=== PATIENT | male | born 1975 | race Caucasian/White ===

== ENCOUNTER 2019-02-09 23:06 | Emergency (ER) | payer SELFPAY ==
[~2019-02-09] VITALS: Ht 154.9 cm; Wt 79.8 kg
[2019-02-09 23:09] VITALS: Ht 154.9 cm; Wt 79.8 kg
[2019-02-10] MEDS ORDERED: SODIUM CHLORIDE 0.9% 1L BAG IV* STA (00:04)
[2019-02-10] MEDS ORDERED: KETOROLAC 30 MG INJ IV STA (00:17)
[2019-02-10] MEDS ORDERED: PIPER-TAZO 3.375 GM IV (PMX) 100 ML IVPB ONE (00:30)
[2019-02-10] MEDS ORDERED: AMOX1TAB10 PO (02:35)
[2019-02-10] MEDS ORDERED: IBUP-1542 PO (02:37)
[2019-02-10] MEDS ORDERED: ACET-141 PO (02:37)
--- NOTE | 2019-02-10 02:46 | ERD ---
ER Documentation Chief Complaint Chief Complaint abscess on perianal area x 3 days HPI 43-year-old male presents for fever and pain around anal area x3 days. Patient has history of anal abscess. In the past patient has been given antibiotics with relief. He never had a incision and drainage because he was told that the abscess is too close to the rectum.. He states that his pain is about 8 out of 10. Is been taking Advil and Tylenol at home with some relief. Denies Raynaud's cough. No significant medical history noted. No other modifying factors noted, no other treatments tried at home. ROS All systems reviewed and are negative except as per history of present illness. Medications Home Meds Active Scripts Acetaminophen* (Acetaminophen*) 500 MG Extra Strength Tablet, 500 MG PO Q4H PRN for PAIN AND OR ELEVATED TEMP, #30 TAB Prov:DENIZ RICHARDS 02/10/19 Ibuprofen* (Motrin*) 600 Mg Tab, 600 MG PO Q6H PRN for PAIN AND OR ELEVATED TEMP, #30 TAB Prov:RICHARDSDENIZ ROSS 02/10/19 Amoxicillin/Potassium Clav (Amox-Clav 875-125 mg Tablet) 875-125 mg Tab, 1 TAB PO BID for 10 Days, #20 TAB Prov:DENIZ RICHARDS 02/10/19 Allergies Allergies: Coded Allergies: No Known Allergy (Unverified , 01/25/15) PMhx/Soc Medical and Surgical Hx: pt denies Medical Hx, pt denies Surgical Hx Hx Alcohol Use: No Hx Substance Use: No Hx Tobacco Use: No FmHx Family History: No coronary disease Physical Exam Vitals Vital Signs Date Temp Pulse Resp B/P (MAP) Pulse Ox O2 O2 Flow FiO2 Time Delivery Rate 02/10/19 98.7 81 17 116/55 96 Room Air 02:28 (75) 02/09/19 101.8 110 20 161/84 97 23:09 (109) Physical Exam Const: No acute distress Resp: Clear to auscultation bilaterally Cardio: Regular rate and rhythm, no murmurs, peripheral pulses intact Abd: Soft, non tender, non distended. Normal bowel sounds Skin: There is some dorothy-anal redness and tenderness to palpation over the right perianal area, there is no obvious fluctuance, there was tenderness to palpation Back: No midline or flank tenderness Ext: No cyanosis, or edema Neur: Awake and alert, bilateral lower extremity sensation intact Psych: Normal Mood and Affect Result Diagram: 02/10/19 0058 02/10/19 0058 Results 24 hrs Laboratory Tests Test 02/10/19 00:58 02/10/19 01:08 White Blood Count 16.0 10^3/ul Red Blood Count 5.29 10^6/ul Hemoglobin 14.9 g/dl Hematocrit 44.2 % Mean Corpuscular Volume 83.6 fl Mean Corpuscular Hemoglobin 28.2 pg Mean Corpuscular Hemoglobin Concent 33.7 g/dl Red Cell Distribution Width 12.6 % Platelet Count 286 10^3/UL Mean Platelet Volume 10.1 fl Immature Granulocytes % 0.400 % Neutrophils % 69.4 % Lymphocytes % 22.0 % Monocytes % 7.3 % Eosinophils % 0.5 % Basophils % 0.4 % Nucleated Red Blood Cells % 0.0 /100WBC Immature Granulocytes # 0.070 10^3/ul Neutrophils # 11.1 10^3/ul Lymphocytes # 3.5 10^3/ul Monocytes # 1.2 10^3/ul Eosinophils # 0.1 10^3/ul Basophils # 0.1 10^3/ul Nucleated Red Blood Cells # 0.0 10^3/ul Prothrombin Time 13.1 Sec Prothrombin Time Ratio 1.0 INR International Normalized Ratio 0.98 Activated Partial Thromboplast Time 31.8 Sec Urine Color YELLOW Urine Clarity CLEAR Urine pH 7.0 Urine Specific [place] 1.021 Urine Ketones NEGATIVE mg/dL Urine Nitrite NEGATIVE mg/dL Urine Bilirubin NEGATIVE mg/dL Urine Urobilinogen 2+ mg/dL Urine Leukocyte Esterase NEGATIVE Garrett/ul Urine Hemoglobin NEGATIVE mg/dL Urine Glucose NEGATIVE mg/dL Urine Total Protein NEGATIVE mg/dl Sodium Level 142 mmol/L Potassium Level 4.2 mmol/L Chloride Level 103 mmol/L Carbon Dioxide Level 27 mmol/L Anion Gap 12 Blood Urea Nitrogen 12 mg/dl Creatinine 0.89 mg/dl Est Glomerular Filtrat Rate mL/min > 60 mL/min Glucose Level 142 mg/dl Calcium Level 9.0 mg/dl Total Bilirubin 0.7 mg/dl Direct Bilirubin 0.00 mg/dl Indirect Bilirubin 0.7 mg/dl Aspartate Amino Transf (AST/SGOT) 24 IU/L Alanine Aminotransferase (ALT/SGPT) 67 IU/L Alkaline Phosphatase 115 IU/L Total Protein 8.3 g/dl Albumin 4.5 g/dl Globulin 3.80 g/dl Albumin/Globulin Ratio 1.18 POC Venous Lactate 1.2 mmol/L Current Medications Medications Dose Sig/Key Start Time Status Last (Trade) Ordered Route PRN Stop Time Admin Dose Reason Admin Piperacillin 100 ml @ ONCE ONCE 02/10/19 DC 02/10/19 Sod/ 200 mls/hr IVPB 00:30 00:51 Tazobactam 02/10/19 00:59 Sod Sodium 2,390 ml BOLUS OVER 2 02/10/19 DC 02/10/19 Chloride HOURS STAT 00:04 00:52 (NS) IV* 02/10/19 00:13 Ketorolac 30 mg ONCE STAT 02/10/19 DC 02/10/19 Tromethamine IV 00:17 00:51 (Toradol) 02/10/19 00:18 Procedures/MDM Medical Decision Making: Differential diagnosis includes but not limited to perianal abscess, cellulitis, contact dermatitis, allergic reaction Patient appeared well on physical exam. There was redness and tenderness to palpation over the right dorothy-rectal area. ED course: Patient presents to the ER with a fever of 101.8 and a pulse of 110. Given SIRS criteria with likely bacterial infection patient was worked up for sepsis Patient was given IV fluids, Zosyn, Toradol. Symptoms improved with treatment. CBC: no e/o of severe anemia, WBC was noted to be elevated at 16 CMP: no e/o severe acidosis, alkalosis, renal failure, diabetic ketoacidosis, liver disease UA was negative for infection CT abdomen pelvis without contrast showed possible 1.8 cm abscess in the right posterior peritoneum Repeat vital signs were normal. Patient did not have any nausea or vomiting. Therefore it was thought that despite the elevated WBC patient could be treated as an outpatient. Patient given prescription for pain medication as well as Augmentin. Advised to return to the ER 48 hours for a recheck. Patient agreed with plan. Patient advised to follow up with PCP in 1-2 days. Patient advised to return to ED for new or worsening symptoms. Patient stable on discharge from the ED. Disclaimer: Inadvertent spelling and grammatical errors are likely due to EHR/dictation software use and do not reflect on the overall quality of patient care. Also, please note that the electronic time recorded on this note does not necessarily reflect the actual time of the patient encounter. Departure Diagnosis: Primary Impression: Perianal abscess Condition: Fair Patient Instructions: Dorothy-Anal Abscess, Abx Only Additional Instructions: Llame al doctor MAANA y sahil glenys SUDHIR PARA DENTRO DE 1-2 BRODERICK.Dgale a la secretaria que nosotros le instruimos hacer esta sudhir.Avise o llame si malloy condicin se empeora antes de la sudhir. Regresa aqui si peor o no mejor. Return to ER in 48 hours for recheck DENIZ RICHARDS DO February 10, 2019 02:46
[2019-02-10 03:55] VITALS: BP 114/56; PULSE 81; RESP 17
== END 2019-02-10 03:56 | disposition home or self-care (01) ==
LOC: FTE 23:06
DX: K61.0 Anal abscess (principal); R10.9 Unspecified abdominal pain
CPT/HCPCS: 36415; 74176; 80053; 81003; 83605; 85025; 85610; 85730; 87040; 96374; 96375; 99285; J1885; J2543; J7030

== ENCOUNTER 2019-02-12 06:55 | Inpatient (IN) | payer MEDICAID ==
[~2019-02-12] VITALS: Ht 160 cm; Wt 79.4 kg
[~2019-02-12 06:55] MED LIST: ACET-141 PO; AMOX1TAB10 PO; IBUP-1542 PO
[2019-02-12 06:56] VITALS: Ht 160 cm; Wt 79.4 kg
[2019-02-12] MEDS ORDERED: KETOROLAC 30 MG INJ IV STA (07:18)
[2019-02-12] MEDS ORDERED: SOD CHLORIDE 0.9% 1,000 ML IV STA (07:18)
[2019-02-12] MEDS ORDERED: CEFTRIAXONE 1 GM/50 ML (PMX) 50 ML IVPB ONE (07:30)
[2019-02-12] MEDS ORDERED: SOD CHLORIDE 0.9% 100 ML ONE (07:48)
[2019-02-12] MEDS ORDERED: IOHEXOL 300MG/ML 150 ML BTL ONE (07:48)
--- NOTE | 2019-02-12 10:31 | CONS ---
Assessment/Plan Assessment/Plan Hospital Course (Demo Recall) 1. Perianal pain 2. Fevers 3. Leukocytosis 4. 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 -Colorectal surgery consultation -Drainage per colorectal or IR guided since nonpalpable 5. BMI 31 -Nutrition and exercise optimization Thank you very much for consulting me in this patient's care, Consultation Date/Type/Reason Admit Date/Time Date of Consultation: February 12, 2019 Type of Consult General surgical Reason for Consultation Perianal pain Perianal abscess, recurrent Leukocytosis BMI 31 Requesting Provider: MAEGAN ELIAS PA-C Date/Time of Note DATE: 02/12/19 TIME: 10:23 Hx of Present Illness Joseluis Luis is a 43-year-old male who presented on the with perianal pain fevers chills and was found to have an abscess but was discharged home on antibiotics from the emergency room. Here he presents with having this to continue about a week now with persistent fevers. He is no nausea vomiting. Having difficulty with bowel function. No dysuria. P no abdominal pain. No visual, neurologic changes. No trauma or sick contacts. No instrumentation of the area. No anal sex. WBC is elevated. CT scan shows enlargement of the abscess to 3 cm. Patient had a previous history of the same 2 years ago that drained spontaneously on antibiotics. Surgical consult is obtained further evaluation and treatment. 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 Leukocytosis Fevers Home Meds Active Scripts Acetaminophen* (Acetaminophen*) 500 MG Extra Strength Tablet, 500 MG PO Q4H PRN for PAIN AND OR ELEVATED TEMP, #30 TAB Prov:DENIZ RICHARDS 02/10/19 Ibuprofen* (Motrin*) 600 Mg Tab, 600 MG PO Q6H PRN for PAIN AND OR ELEVATED TEMP, #30 TAB Prov:DENIZ RICHARDS DO 02/10/19 Amoxicillin/Potassium Clav (Amox-Clav 875-125 mg Tablet) 875-125 mg Tab, 1 TAB PO BID for 10 Days, #20 TAB Prov:DENIZ RICHARDS DO 02/10/19 Allergies: Coded Allergies: No Known Allergy (Unverified , 01/25/15) Past Surgical History Denies Family History Significant Family History: no pertinent family hx Social History He is a poor man. here with his . Alcohol Use: none Smoking Status: Never smoker Drug Use: none Exam/Review of Systems Exam Vitals Vital Signs Date Temp Pulse Resp B/P (MAP) Pulse Ox O2 O2 Flow FiO2 Time Delivery Rate 02/12/19 99.9 93 19 129/84 99 06:56 (99) Constitutional: alert, oriented, distress (Mild), obese Psych: anxiety; No confusion Head: normocephalic, atraumatic Eyes: nl conjunctiva, EOMI, PERRL; No icteric ENMT: nl external ears & nose, nl lips & teeth, mucosa pink and moist Neck: supple, non-tender; No jvd Respiratory: normal air movement; No congested cough, No labored breathing Cardiovascular: regular rate and rhythm; No edema Gastrointestinal: soft, non-tender, other (Obese. Perianal mild tenderness. No palpable induration or fluctuance. Tender on digital rectal exam with fullness at the tip of my finger. Old scar from where it previously drained on its own); No rebound or guarding, No tender Genitourinary - Male: nl penis, nl scrotum Musculoskeletal: nl extremities to inspection, nl gait and stance; No joint tenderness Extremities: normal pulses; No calf tenderness, No edema Neurological: nl mental status, nl speech, nl strength Skin: nl turgor; No rash or lesions, No diaphoresis Lymph: nl lymph nodes Results Result Diagram: 02/12/19 0725 02/12/19 0725 Results 24hrs Laboratory Tests Test 02/12/19 07:25 White Blood Count 13.4 H Red Blood Count 5.09 Hemoglobin 14.3 Hematocrit 42.4 Mean Corpuscular Volume 83.3 Mean Corpuscular Hemoglobin 28.1 L Mean Corpuscular Hemoglobin Concent 33.7 Red Cell Distribution Width 12.2 Platelet Count 329 Mean Platelet Volume 9.8 Immature Granulocytes % 0.400 Neutrophils % 76.2 Lymphocytes % 17.6 Monocytes % 4.7 Eosinophils % 0.7 Basophils % 0.4 Nucleated Red Blood Cells % 0.0 Immature Granulocytes # 0.060 H Neutrophils # 10.2 H Lymphocytes # 2.4 Monocytes # 0.6 Eosinophils # 0.1 Basophils # 0.1 Nucleated Red Blood Cells # 0.0 Urine Color YELLOW Urine Clarity CLEAR Urine pH 6.0 Urine Specific [place] 1.012 Urine Ketones NEGATIVE Urine Nitrite NEGATIVE Urine Bilirubin NEGATIVE Urine Urobilinogen NEGATIVE Urine Leukocyte Esterase NEGATIVE Urine Hemoglobin NEGATIVE Urine Glucose 1+ H Urine Total Protein NEGATIVE Sodium Level 139 Potassium Level 3.9 Chloride Level 104 Carbon Dioxide Level 23 Anion Gap 12 Blood Urea Nitrogen 11 Creatinine 0.89 Est Glomerular Filtrat Rate mL/min > 60 Glucose Level 284 H Calcium Level 9.2 Total Bilirubin 0.5 Direct Bilirubin 0.00 Indirect Bilirubin 0.5 Aspartate Amino Transf (AST/SGOT) 30 Alanine Aminotransferase (ALT/SGPT) 53 Alkaline Phosphatase 111 Total Protein 7.9 Albumin 4.2 Globulin 3.70 H Albumin/Globulin Ratio 1.13 Lipase 82 BEKAH STILL MD February 12, 2019 10:31
[2019-02-12 11:00] VITALS: BP 149/87; PULSE 83; RESP 20
[2019-02-12] MEDS ORDERED: ZOLPIDEM 5 MG TAB PO PRN (15:00)
[2019-02-12] MEDS ORDERED: ACETAMINOPHEN 325 MG TAB PO PRN (15:00)
[2019-02-12] MEDS ORDERED: ONDANSETRON 4 MG INJ IV PRN (15:00)
[2019-02-12] MEDS ORDERED: NACL 0.9% 3 ML SYG IV SCH (15:00)
[2019-02-12] MEDS ORDERED: HYDROCODONE/APAP (5/325) TAB PO PRN (15:00)
[2019-02-12] MEDS ORDERED: DOCUSATE SODIUM 100 MG CAP PO PRN (15:00)
[2019-02-12] MEDS: morphine 2 MG INJ IV PRN (15:29)
[2019-02-12] MEDS: D5W-0.45 NACL + KCL 20 MEQ 1,000 ML IV SCH (15:32)
[2019-02-12] MEDS: MEROPENEM 1 GM/50ML(PMX) 50 ML IVPB SCH ×2 (15:32→21:59)
--- NOTE | 2019-02-12 15:54 | ERD ---
ER Documentation Chief Complaint Chief Complaint abscess @ perineal area HPI 43 yr old male complaining of pain to the anal and perianal abscess. Pain is worsening. Tactile fevers at home. Taking abx with no alleviations. No medical problems. NKDA. Surgeries denies. Social history denies. No abdominal pain. ROS All systems reviewed and are negative except as per history of present illness. Medications Home Meds Active Scripts Acetaminophen* (Acetaminophen*) 500 MG Extra Strength Tablet, 500 MG PO Q4H PRN for PAIN AND OR ELEVATED TEMP, #30 TAB Prov:DENIZ RICHARDS DO 02/10/19 Ibuprofen* (Motrin*) 600 Mg Tab, 600 MG PO Q6H PRN for PAIN AND OR ELEVATED TEMP, #30 TAB Prov:DENIZ RICHARDS DO 02/10/19 Amoxicillin/Potassium Clav (Amox-Clav 875-125 mg Tablet) 875-125 mg Tab, 1 TAB PO BID for 10 Days, #20 TAB Prov:DENIZ RICHARDS DO 02/10/19 Allergies Allergies: Coded Allergies: No Known Allergy (Unverified , 01/25/15) PMhx/Soc Medical and Surgical Hx: pt denies Medical Hx, pt denies Surgical Hx History of Surgery: No Hx Neurological Disorder: No Hx Respiratory Disorders: No Hx Cardiac Disorders: No Hx Psychiatric Problems: No Hx Miscellaneous Medical Probl: No Hx Alcohol Use: No Hx Substance Use: No Hx Tobacco Use: No Smoking Status: Never smoker FmHx Family History: No diabetes, No coronary disease, No other Physical Exam Vitals Vital Signs Date Temp Pulse Resp B/P (MAP) Pulse Ox O2 O2 Flow FiO2 Time Delivery Rate 02/12/19 99.9 93 19 129/84 99 06:56 (99) Physical Exam GENERAL: The patient is well-appearing, well-nourished, in no acute distress HEENT: Atraumatic. Conjunctivae are pink. Pupils equal, round, and reactive to light. There is no scleral icterus. Tympanic membranes clear bilaterally. Oropharynx clear. NECK: C-spine is soft and supple. There is no meningismus. There is no cervical lymphadenopathy. CHEST: Clear to auscultation bilaterally. There are no rales, wheezes or rhonchi. HEART: Regular rate and rhythm. No murmurs, clicks, rubs or gallops. ABDOMEN:Soft, nontender and nondistended. Good bowel sounds. No rebound or guarding. No gross peritonitis. No gross organomegaly or masses. BACK: No midline or flank tenderness. SKIN: No obvious edema or fluctuance. Pain with digital rectal exam. Result Diagram: 02/12/1925 02/12/19 0725 Results 24 hrs Laboratory Tests Test 02/12/19 07:25 White Blood Count 13.4 10^3/ul Red Blood Count 5.09 10^6/ul Hemoglobin 14.3 g/dl Hematocrit 42.4 % Mean Corpuscular Volume 83.3 fl Mean Corpuscular Hemoglobin 28.1 pg Mean Corpuscular Hemoglobin Concent 33.7 g/dl Red Cell Distribution Width 12.2 % Platelet Count 329 10^3/UL Mean Platelet Volume 9.8 fl Immature Granulocytes % 0.400 % Neutrophils % 76.2 % Lymphocytes % 17.6 % Monocytes % 4.7 % Eosinophils % 0.7 % Basophils % 0.4 % Nucleated Red Blood Cells % 0.0 /100WBC Immature Granulocytes # 0.060 10^3/ul Neutrophils # 10.2 10^3/ul Lymphocytes # 2.4 10^3/ul Monocytes # 0.6 10^3/ul Eosinophils # 0.1 10^3/ul Basophils # 0.1 10^3/ul Nucleated Red Blood Cells # 0.0 10^3/ul Urine Color YELLOW Urine Clarity CLEAR Urine pH 6.0 Urine Specific [place] 1.012 Urine Ketones NEGATIVE mg/dL Urine Nitrite NEGATIVE mg/dL Urine Bilirubin NEGATIVE mg/dL Urine Urobilinogen NEGATIVE mg/dL Urine Leukocyte Esterase NEGATIVE Garrett/ul Urine Hemoglobin NEGATIVE mg/dL Urine Glucose 1+ mg/dL Urine Total Protein NEGATIVE mg/dl Sodium Level 139 mmol/L Potassium Level 3.9 mmol/L Chloride Level 104 mmol/L Carbon Dioxide Level 23 mmol/L Anion Gap 12 Blood Urea Nitrogen 11 mg/dl Creatinine 0.89 mg/dl Est Glomerular Filtrat Rate mL/min > 60 mL/min Glucose Level 284 mg/dl Calcium Level 9.2 mg/dl Total Bilirubin 0.5 mg/dl Direct Bilirubin 0.00 mg/dl Indirect Bilirubin 0.5 mg/dl Aspartate Amino Transf (AST/SGOT) 30 IU/L Alanine Aminotransferase (ALT/SGPT) 53 IU/L Alkaline Phosphatase 111 IU/L Total Protein 7.9 g/dl Albumin 4.2 g/dl Globulin 3.70 g/dl Albumin/Globulin Ratio 1.13 Lipase 82 U/L Current Medications Medications Dose Sig/Key Start Time Status Last (Trade) Ordered Route PRN Stop Time Admin Dose Reason Admin Sodium 1,000 ml @ Q1H STAT 02/12/19 DC 02/12/19 Chloride 1,000 mls/hr IV 07:18 07:35 02/12/19 08:17 Ketorolac 30 mg ONCE STAT 02/12/19 DC 02/12/19 Tromethamine IV 07:18 07:35 (Toradol) 02/12/19 07:20 Ceftriaxone 50 ml @ ONCE ONCE 02/12/19 DC 02/12/19 Sodium 100 mls/hr IVPB 07:30 07:35 02/12/19 07:59 IV Flush 10 ml STK-MED 02/12/19 DC (NS 10 ml) ONCE .ROUTE 07:48 02/12/19 07:49 Sodium 100 ml @ ud STK-MED 02/12/19 DC Chloride ONCE .ROUTE 07:48 02/12/19 07:49 Iohexol 150 ml STK-MED 02/12/19 DC (Omnipaque ONCE .ROUTE 07:48 300mg/ ml) 02/12/19 07:49 Procedures/MDM DIAGNOSTIC IMAGING REPORT Patient: DILLAN DANIEL : 1975 Age: 43 Sex: M MR #: [id number] DOS: 02/12/19717 Ordering MD: ROSHNI HERRON PA-C Location: [facility] Room/Bed: PROCEDURE: CT Abdomen and Pelvis with IV contrast. CLINICAL INDICATION: Perineal abscess, pain TECHNIQUE: CT of the abdomen and pelvis with 100 cc Omnipaque-300 IV contrast. Coronal and sagittal reformatted images. DICOM images are available. One or more of the following dose reduction techniques were used: automated exposure control, adjustment of the mA and/or kV according to patient size, use of iterative reconstruction technique. CTDI 16.7 mGy, DLP 1057 mGy-cm. COMPARISON: CT 02/10/2019 FINDINGS: Lower thorax: Normal. Liver: Hepatic steatosis. No enhancing mass. Patent portal and hepatic veins. Biliary: Normal gallbladder. No biliary dilatation. Pancreas: Normal. Spleen: Normal. Adrenal glands: Normal. Genitourinary: No hydronephrosis or urinary calculi. Unremarkable urinary bladder. Vascular: No abdominal aortic aneurysm or dissection. Lymph nodes: No lymphadenopathy. Gastrointestinal: No bowel obstruction. Normal appendix. No diverticulosis, diverticulitis or colitis. Peritoneum: No free air, free fluid or intraperitoneal abscess. Reproductive organs: Unremarkable. Musculoskeletal: Rim enhancing low density collection is identified in the anterior pararenal region, measuring approximately 3.0 x 2.5 x 3.4 cm (3-181), compatible with abscess. Degenerative enthesopathy of the spine. IMPRESSION: 1. Abscess is identified in the anterior perianal/perineal region, measuring approximately 3.4 cm in maximal dimension. 2. There is no bowel obstruction, perforation, or intraperitoneal abscess. 3. Hepatic steatosis. DIAGNOSTIC IMAGING REPORT Patient: DILLAN DANIEL : 1975 Age: 43 Sex: M MR #: [id number] DOS: 02/12/19 0718 Ordering MD: ROSHNI HERRON PA-C Location: [facility] Room/Bed: PROCEDURE: US Scrotum. CLINICAL INDICATION: Right testicular pain TECHNIQUE: Multiple sonographic images of the scrotal region were obtained utilizing a linear array transducer with grayscale and color-flow and a Doppler imaging. COMPARISON: No prior studies are available for comparison. FINDINGS: The testicles are normal in size the right measuring 3.94 x 2.75 x 2.62 cm and the left measuring 4.13 x 2.06 x 3.06 cm. Testicular parenchymal echogenicity normal bilaterally without focal lesions. Flow to both testicles without ultrasonic evidence of testicular torsion. The epididymi are normal in size the right measuring 0.66 x 1.18 x 0.46 cm and the left measuring 0.59 x 0.98 x 0.99 cm. No focal epididymal lesions. No hydroceles or varicoceles demonstrated. IMPRESSION: 1. Unremarkable testicles and epididymi without focal lesions. 2. No evidence of testicular torsion. 3. No hydroceles or varicoceles demonstrated. ER Course: 1 L normal saline given in ED. Rocephin given in ED. Dr. Sandoval was consulted for surgical intervention given patient has an abscess that appears to be growing in size. Patient's pain is increased. Patient is afebrile. Patient will be admitted to the hospitalist and colorectal surgery consultation will be requested. Patient will be receiving IV antibiotics. MDM: 43-year-old male presenting with perianal abscess. I have low suspicion for sepsis. Patient's vitals are stable. Is admitted to the hospital and is stable at the time of admission. All questions answered at admission DANIELLE HERRON PA-C February 12, 2019 15:54
--- NOTE | 2019-02-12 16:32 | HP ---
Date/Time of Note Date/Time of Note DATE: 02/12/19 TIME: 16:21 Assessment/Plan VTE Prophylaxis SCD applied (from Nsg): Yes Pharmacological prophylaxis: NA/contraindicated Pharm contraindication: low risk/ambulating Lines/Catheters IV Catheter Type (from Nrsg): Saline Lock Assessment/Plan Hospital Course 1. Sepsis secondary to perianal/perineal abscess IV antibiotics meropenem ID consultation Surgical consultation appreciated, recommendation is for IR drainage or colorectal surgery, IR stating that they are unable to drain at this location Obtain consult with colorectal surgery Check HIV Prophylaxis: SCDs Result Diagram: 02/12/1925 02/12/19724 Results 24hrs Laboratory Tests Test 02/12/19 07:25 White Blood Count 13.4 H Red Blood Count 5.09 Hemoglobin 14.3 Hematocrit 42.4 Mean Corpuscular Volume 83.3 Mean Corpuscular Hemoglobin 28.1 L Mean Corpuscular Hemoglobin Concent 33.7 Red Cell Distribution Width 12.2 Platelet Count 329 Mean Platelet Volume 9.8 Immature Granulocytes % 0.400 Neutrophils % 76.2 Lymphocytes % 17.6 Monocytes % 4.7 Eosinophils % 0.7 Basophils % 0.4 Nucleated Red Blood Cells % 0.0 Immature Granulocytes # 0.060 H Neutrophils # 10.2 H Lymphocytes # 2.4 Monocytes # 0.6 Eosinophils # 0.1 Basophils # 0.1 Nucleated Red Blood Cells # 0.0 Urine Color YELLOW Urine Clarity CLEAR Urine pH 6.0 Urine Specific [place] 1.012 Urine Ketones NEGATIVE Urine Nitrite NEGATIVE Urine Bilirubin NEGATIVE Urine Urobilinogen NEGATIVE Urine Leukocyte Esterase NEGATIVE Urine Hemoglobin NEGATIVE Urine Glucose 1+ H Urine Total Protein NEGATIVE Sodium Level 139 Potassium Level 3.9 Chloride Level 104 Carbon Dioxide Level 23 Anion Gap 12 Blood Urea Nitrogen 11 Creatinine 0.89 Est Glomerular Filtrat Rate mL/min > 60 Glucose Level 284 H Calcium Level 9.2 Total Bilirubin 0.5 Direct Bilirubin 0.00 Indirect Bilirubin 0.5 Aspartate Amino Transf (AST/SGOT) 30 Alanine Aminotransferase (ALT/SGPT) 53 Alkaline Phosphatase 111 Total Protein 7.9 Albumin 4.2 Globulin 3.70 H Albumin/Globulin Ratio 1.13 Lipase 82 HPI/ROS Admit Date/Time Admit Date/Time February 12, 2019 Hx of Present Illness Patient is a 43-year-old male with history of perianal abscess that improved with antibiotics, patient presents with 3 days of worsening perirectal pain with fevers and chills and generalized malaise. In the ER CT abdomen showed an abscess in the anterior perianal/perineal region measuring approximate 3.4 cm. ROS Constitutional: no complaints, improved Eyes: no complaints ENT: no complaints Respiratory: no complaints Cardiovascular: no complaints Gastrointestinal: no complaints Genitourinary: other (Rectal pain) Musculoskeletal: no complaints Skin: no complaints Neurologic: no complaints Endocrine: no complaints Lymphatic: no complaints Psychological: no complaints, nl mood/affect Immunologic: no complaints PMH/Family/Social Past Medical History History of perirectal abscess Medications Current Medications Potassium Chloride/Dextrose/ Sod Cl 1,000 ml @ 100 mls/hr Q10H IV Last administered on 02/12/19at 15:32; Admin Dose 100 MLS/HR; Start 02/12/19 at 14:36 IV Flush (NS 3 ml) 3 ml PER PROTOCOL IV ; Start 02/12/19 at 15:00 Ondansetron HCl (Zofran Inj) 4 mg Q6H PRN IV NAUSEA/VOMITING; Start 02/12/19 at 15:00 Acetaminophen (Tylenol Tab) 650 mg Q6H PRN PO .PAIN 1-3 OR TEMP; Start 02/12/19 at 15:00 Acetaminophen/ Hydrocodone Bitart ([place] (5/325)) 1 tab Q6H PRN PO .MOD PAIN 4- 6; Start 02/12/19 at 15:00 Morphine Sulfate (morphine) 2 mg Q4H PRN IV .SEVERE PAIN 7-10 Last administered on 02/12/19at 15:29; Admin Dose 2 MG; Start 02/12/19 at 15:00 Docusate Sodium (Colace) 100 mg Q12H PRN PO .CONSTIPATION; Start 02/12/19 at 15:00 Zolpidem Tartrate (Ambien) 5 mg QHS PRN PO .INSOMNIA; Start 02/12/19 at 15:00 Meropenem/Sodium Chloride 50 ml @ 100 mls/hr Q8 IVPB Last administered on 02/12/19at 15:32; Admin Dose 100 MLS/HR; Start 02/12/19 at 15:00 Coded Allergies: No Known Allergy (Unverified , 01/25/15) Past Surgical History Past Surgical Hx: no surgical history Family History Significant Family History: no pertinent family hx Social History Alcohol Use: none Smoking Status: Never smoker Drug Use: none Exam/Review of Systems Vital Signs Vitals Vital Signs Date Temp Pulse Resp B/P (MAP) Pulse Ox O2 O2 Flow FiO2 Time Delivery Rate 02/12/19 100.4 83 20 149/87 98 11:00 (107) 02/12/19 Room Air 10:42 Exam Constitutional: alert, oriented Respiratory: clear to auscultation Cardiovascular: regular rate and rhythm Gastrointestinal: soft; No distended Musculoskeletal: nl extremities to inspection ELIANE SILVA February 12, 2019 16:32
[2019-02-12] MEDS: PIPER-TAZO 3.375 GM IV (PMX) 100 ML IVPB SCH ×2 (17:26→23:46)
[2019-02-12 20:00] VITALS: BP 129/77; PULSE 80; RESP 18
[2019-02-13 02:35] VITALS: BP 119/58; PULSE 83; RESP 18
[2019-02-13] MEDS: D5W-0.45 NACL + KCL 20 MEQ 1,000 ML IV SCH ×3 (02:59→15:10)
[2019-02-13] MEDS: PIPER-TAZO 3.375 GM IV (PMX) 100 ML IVPB SCH ×3 (05:33→17:43)
[2019-02-13 08:21] VITALS: BP 124/66; PULSE 78; RESP 18
--- NOTE | 2019-02-13 14:11 | PN ---
Date/Time of Note Date/Time of Note DATE: 02/13/19 TIME: 14:09 Assessment/Plan VTE Prophylaxis Risk score (from Ns)>0 risk: 1 SCD applied (from Ns): Yes Pharmacological prophylaxis: NA/contraindicated Pharm contraindication: low risk/ambulating Lines/Catheters [facility] (from [facility] Peripheral IV Urinary Cath still in place: No Assessment/Plan Hospital Course 1. Sepsis secondary to perianal/perineal abscess IV antibiotics meropenem ID consultation appreciated Surgical consultation appreciated, recommendation is for IR drainage or colorectal surgery, IR stating that they are unable to drain at this location Obtain consult with colorectal surgery Check HIV Prophylaxis: SCDs DC planning: Unable to have colorectal surgery evaluate patient due to lack of insurance, continue IV antibiotics, egg caser to assist with [facility] Result Diagram: 02/13/1943102/13/19 0432 Results 24hrs Laboratory Tests Test 02/13/19 04:30 02/13/19 04:32 Hemoglobin A1c 6.9 H White Blood Count 13.2 H Red Blood Count 5.06 Hemoglobin 14.3 Hematocrit 42.2 Mean Corpuscular Volume 83.4 Mean Corpuscular Hemoglobin 28.3 L Mean Corpuscular Hemoglobin Concent 33.9 Red Cell Distribution Width 12.6 Platelet Count 311 Mean Platelet Volume 9.7 Immature Granulocytes % 0.500 H Neutrophils % 68.2 Lymphocytes % 21.7 Monocytes % 8.5 Eosinophils % 0.9 Basophils % 0.2 Nucleated Red Blood Cells % 0.0 Immature Granulocytes # 0.060 H Neutrophils # 9.0 H Lymphocytes # 2.9 Monocytes # 1.1 H Eosinophils # 0.1 Basophils # 0.0 Nucleated Red Blood Cells # 0.0 Sodium Level 139 Potassium Level 4.1 Chloride Level 104 Carbon Dioxide Level 29 Anion Gap 6 Blood Urea Nitrogen 8 Creatinine 1.01 Est Glomerular Filtrat Rate mL/min > 60 Glucose Level 144 # Calcium Level 9.3 Phosphorus Level 3.9 Magnesium Level 2.2 Subjective 24 Hr Interval Summary Gastrointestinal: other (Rectal pain) Exam/Review of Systems Exam Vitals Vital Signs Date Temp Pulse Resp B/P (MAP) Pulse Ox O2 O2 Flow FiO2 Time Delivery Rate 02/13/19 99.8 78 18 124/66 97 08:21 (85) 02/12/19 Room Air 20:00 Intake and Output 502/12/19 02/13/19 1515:00 23:00 07:00 IntakeIntake Total 1050 ml 100 ml 1400 ml BalanceBalance 1050 ml 100 ml 1400 ml Constitutional: alert, oriented Respiratory: clear to auscultation Cardiovascular: regular rate and rhythm Gastrointestinal: soft; No distended Musculoskeletal: nl extremities to inspection Results Results 24hrs Laboratory Tests Test 02/13/19 04:30 02/13/19 04:32 Hemoglobin A1c 6.9 H White Blood Count 13.2 H Red Blood Count 5.06 Hemoglobin 14.3 Hematocrit 42.2 Mean Corpuscular Volume 83.4 Mean Corpuscular Hemoglobin 28.3 L Mean Corpuscular Hemoglobin Concent 33.9 Red Cell Distribution Width 12.6 Platelet Count 311 Mean Platelet Volume 9.7 Immature Granulocytes % 0.500 H Neutrophils % 68.2 Lymphocytes % 21.7 Monocytes % 8.5 Eosinophils % 0.9 Basophils % 0.2 Nucleated Red Blood Cells % 0.0 Immature Granulocytes # 0.060 H Neutrophils # 9.0 H Lymphocytes # 2.9 Monocytes # 1.1 H Eosinophils # 0.1 Basophils # 0.0 Nucleated Red Blood Cells # 0.0 Sodium Level 139 Potassium Level 4.1 Chloride Level 104 Carbon Dioxide Level 29 Anion Gap 6 Blood Urea Nitrogen 8 Creatinine 1.01 Est Glomerular Filtrat Rate mL/min > 60 Glucose Level 144 # Calcium Level 9.3 Phosphorus Level 3.9 Magnesium Level 2.2 Medications Medication Current Medications Potassium Chloride/Dextrose/ Sod Cl 1,000 ml @ 100 mls/hr Q10H IV Last administered on 02/13/19at 02:59; Admin Dose 100 MLS/HR; Start 02/12/19 at 14:36 IV Flush (NS 3 ml) 3 ml PER PROTOCOL IV ; Start 02/12/19 at 15:00 Ondansetron HCl (Zofran Inj) 4 mg Q6H PRN IV NAUSEA/VOMITING; Start 02/12/19 at 15:00 Acetaminophen (Tylenol Tab) 650 mg Q6H PRN PO .PAIN 1-3 OR TEMP; Start 02/12/19 at 15:00 Acetaminophen/ Hydrocodone Bitart ([place] (5/325)) 1 tab Q6H PRN PO .MOD PAIN 4- 6; Start 02/12/19 at 15:00 Morphine Sulfate (morphine) 2 mg Q4H PRN IV .SEVERE PAIN 7-10 Last administered on 02/12/19at 15:29; Admin Dose 2 MG; Start 02/12/19 at 15:00 Docusate Sodium (Colace) 100 mg Q12H PRN PO .CONSTIPATION; Start 02/12/19 at 15:00 Zolpidem Tartrate (Ambien) 5 mg QHS PRN PO .INSOMNIA; Start 02/12/19 at 15:00 Piperacillin Sod/ Tazobactam Sod 100 ml @ 200 mls/hr Q6 IVPB Last administered on 02/13/19at 12:18; Admin Dose 200 MLS/HR; Start 02/12/19 at 18:00 ELIANE SILVA February 13, 2019 14:11
--- NOTE | 2019-02-13 14:16 | CONS ---
Assessment/Plan Assessment/Plan Hospital Course (Demo Recall) Patient is alert complaining of rectal pain no fevers he is in no distress WBC today 13.2 no shift no bands BUN 8 creatinine 1.01 Antimicrobials: Zosyn Physical examination: Well-nourished well-developed middle-aged man who is alert in no distress. Head atraumatic normocephalic neck is supple chest rise symmetrical breath sounds clear heart S1-S2 abdomen soft bowel sounds prese nt extremities without cyanosis Assessment: 1. Systemic inflammatory response syndrome with ongoing low-grade fevers and leukocytosis 2. Perianal abscess Plan: Patient is stable continue present care and antibiotics, consider sitz bath's, follow surgical recommendations Consultation Date/Type/Reason Admit Date/Time February 12, 2019 at 10:06 Initial Consult Date 02/12/19 Type of Consult id Requesting Provider: MAEGAN ELIAS PA-C Date/Time of Note DATE: 02/13/19 TIME: 14:16 Exam/Review of Systems Exam Vitals Vital Signs Date Temp Pulse Resp B/P (MAP) Pulse Ox O2 O2 Flow FiO2 Time Delivery Rate 02/13/19 99.8 78 18 124/66 97 08:21 (85) 02/12/19 Room Air 20:00 Intake and Output 02/12/19 02/12/19 02/13/19 1515:00 23:00 07:00 IntakeIntake Total 1050 ml 100 ml 1400 ml BalanceBalance 1050 ml 100 ml 1400 ml Results Result Diagram: 02/13/19 0432 02/13/19 0432 Results 24hrs Laboratory Tests Test 02/13/19 04:30 02/13/19 04:32 Hemoglobin A1c 6.9 H White Blood Count 13.2 H Red Blood Count 5.06 Hemoglobin 14.3 Hematocrit 42.2 Mean Corpuscular Volume 83.4 Mean Corpuscular Hemoglobin 28.3 L Mean Corpuscular Hemoglobin Concent 33.9 Red Cell Distribution Width 12.6 Platelet Count 311 Mean Platelet Volume 9.7 Immature Granulocytes % 0.500 H Neutrophils % 68.2 Lymphocytes % 21.7 Monocytes % 8.5 Eosinophils % 0.9 Basophils % 0.2 Nucleated Red Blood Cells % 0.0 Immature Granulocytes # 0.060 H Neutrophils # 9.0 H Lymphocytes # 2.9 Monocytes # 1.1 H Eosinophils # 0.1 Basophils # 0.0 Nucleated Red Blood Cells # 0.0 Sodium Level 139 Potassium Level 4.1 Chloride Level 104 Carbon Dioxide Level 29 Anion Gap 6 Blood Urea Nitrogen 8 Creatinine 1.01 Est Glomerular Filtrat Rate mL/min > 60 Glucose Level 144 # Calcium Level 9.3 Phosphorus Level 3.9 Magnesium Level 2.2 Medications Medication Current Medications Potassium Chloride/Dextrose/ Sod Cl 1,000 ml @ 100 mls/hr Q10H IV Last administered on 02/13/19at 02:59; Admin Dose 100 MLS/HR; Start 02/12/19 at 14:36 IV Flush (NS 3 ml) 3 ml PER PROTOCOL IV ; Start 02/12/19 at 15:00 Ondansetron HCl (Zofran Inj) 4 mg Q6H PRN IV NAUSEA/VOMITING; Start 02/12/19 at 15:00 Acetaminophen (Tylenol Tab) 650 mg Q6H PRN PO .PAIN 1-3 OR TEMP; Start 02/12/19 at 15:00 Acetaminophen/ Hydrocodone Bitart ([place] (5/325)) 1 tab Q6H PRN PO .MOD PAIN 4- 6; Start 02/12/19 at 15:00 Morphine Sulfate (morphine) 2 mg Q4H PRN IV .SEVERE PAIN 7-10 Last administered on 02/12/19at 15:29; Admin Dose 2 MG; Start 02/12/19 at 15:00 Docusate Sodium (Colace) 100 mg Q12H PRN PO .CONSTIPATION; Start 02/12/19 at 15:00 Zolpidem Tartrate (Ambien) 5 mg QHS PRN PO .INSOMNIA; Start 02/12/19 at 15:00 Piperacillin Sod/ Tazobactam Sod 100 ml @ 200 mls/hr Q6 IVPB Last administered on 02/13/19at 12:18; Admin Dose 200 MLS/HR; Start 02/12/19 at 18:00 NOE VINCENT NP February 13, 2019 14:16
[2019-02-13 14:43] VITALS: BP 128/78; PULSE 81; RESP 18
[2019-02-13] MEDS: morphine 2 MG INJ IV PRN (17:51)
--- NOTE | 2019-02-13 18:11 | PN ---
Date/Time of Note Date/Time of Note DATE: 02/13/19 TIME: 18:09 Assessment/Plan Lines/Catheters IV Catheter Type (from [facility]): Peripheral IV [facility] in Place (from [facility]): No Assessment/Plan Chief Complaint/Hosp Course 1. Perianal pain: Improved 2. Fevers 3. Leukocytosis 4. 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 -Colorectal surgery consultation -Drainage per IR guided since nonpalpable> pending today 5. BMI 31 -Nutrition and exercise optimization Thank you. Patient seen and examined in collaboration with Dr. Axel Sandoval. Subjective 24 Hr Interval Summary Pending IR drain of abscess today. Min temp. No chills, sob, congested cough, cp, palpitations, yung, dizziness, n/v/d/dysuria. Exam/Review of Systems Vital Signs Vitals Vital Signs Date Temp Pulse Resp B/P (MAP) Pulse Ox O2 O2 Flow FiO2 Time Delivery Rate 02/14/19 100.4 87 17 119/75 98 14:23 (90) 02/14/19 Room Air 02:00 Intake and Output 02/13/19 02/13/19 02/14/19 1515:00 23:00 07:00 IntakeIntake Total 940 ml 1460 ml 1330 ml BalanceBalance 940 ml 1460 ml 1330 ml Exam Free Text/Dictation Constitutional: alert, oriented, distress (Mild), obese Psych: anxiety; No confusion Head: normocephalic, atraumatic Eyes: nl conjunctiva, EOMI, PERRL; No icteric ENMT: nl external ears & nose, nl lips & teeth, mucosa pink and moist Neck: supple, non-tender; No jvd Respiratory: normal air movement; No congested cough, No labored breathing Cardiovascular: regular rate and rhythm; No edema Gastrointestinal: soft, non-tender, other (Obese. Perianal mild tenderness. No palpable induration or fluctuance. Old scar from where it previously drained on its own); No rebound or guarding, No tender Genitourinary - Male: nl penis, nl scrotum Musculoskeletal: nl extremities to inspection, nl gait and stance; No joint tenderness Extremities: normal pulses; No calf tenderness, No edema Neurological: nl mental status, nl speech, nl strength Skin: nl turgor; No rash or lesions, No diaphoresis Lymph: nl lymph nodes Results Result Diagram: 02/14/19 0513 02/13/19 0432 CECIL CHARLES NP February 13, 2019 18:11
--- NOTE | 2019-02-13 19:31 | CONS ---
DATE OF ADMISSION: 02/12/2019 DATE OF CONSULTATION: TYPE OF CONSULTATION: Infectious disease consultation for Dr. Gerald Escalante. HISTORY OF PRESENT ILLNESS: The patient is a 43-year-old single male [facility] who was admitted on 02/12/2019 with a chief complaint of perianal abscess. The patient was seen initially in the emergen cy room on 02/09 with a several days' history of perianal pain, fever and chills. He had been treate d for perianal abscess which was previously. Upon arrival, he had a white count of 13,000, hemoglobi n 14 grams, hematocrit 42%, 76 polys, 18 lymphs, 5 monos, 1 eosinophil. The patient had a CT scan wh ich revealed a 3.4 cm abscess in the anterior perineal area. The patient had a surgical consult by Daria Sandoval who declared that it was not currently drainable at this stage and position. The patient was initially begun treatment with meropenem and this was later changed to Zosyn. The patient has yung d a blood sugar of 235 on admission. PHYSICAL EXAMINATION GENERAL: This is a well-developed, obese [facility] male who is in no acute distress. VITAL SIGNS: Stable. CHEST: Clear. HEENT: Normal. ABDOMEN: Obese, soft. Perianal area was examined superficially. There appears to be some swelling in the anterior area, but it is minimal. EXTREMITIES: Examination of the extremities revealed no edema, cyanosis or clubbing. NEUROLOGIC: Grossly within normal limits. INITIAL IMPRESSION: 1. Anterior perianal abscess, recurrent. 2. Diabetes mellitus. 3. Obesity, BMI of 31. RECOMMENDATIONS: I would continue Zosyn and obtain an A1c hemoglobin and if we can find them at [facility] in this entry perhaps Sitz baths 2 or 3 times a day might be helpful and all owing this patient to drain. I would suggest after drainage and some culture and sensitivity to use oral antibiotics when discharged because he is diabetic and has been recurrent to treat him for at ast 2 weeks after discharge, not including a day in hospital. Probably Augmentin would work well at the previous dose of 875 mg, but this would depend upon the culture and sensitivity of the drainage. Thank you, Dr. Bishop Marquez, for referring this interesting patient to Dr. Escalante. Dictated By: Leonor JUAREZ MD EC/NTS Conf#: [id number] DID#: [id number] CC: GERALD ESCALANTE MD; BISHOP MARQUEZ MD;*EndCC*
[2019-02-13 20:00] VITALS: BP 114/66; PULSE 85; RESP 18
[2019-02-14] MEDS: PIPER-TAZO 3.375 GM IV (PMX) 100 ML IVPB SCH ×5 (00:04→23:42)
[2019-02-14 02:00] VITALS: BP 111/64; PULSE 83; RESP 18
[2019-02-14] MEDS: D5W-0.45 NACL + KCL 20 MEQ 1,000 ML IV SCH (02:23)
[2019-02-14 07:34] VITALS: BP 108/66; PULSE 69; RESP 17
[2019-02-14 14:23] VITALS: BP 119/75; PULSE 87; RESP 17
--- NOTE | 2019-02-14 15:06 | CONS ---
Assessment/Plan Assessment/Plan Hospital Course (Demo Recall) No acute changes patient is alert feels good looks comfortable no fevers no more drainage pain is much better he still has low-grade fevers with a T-max 100.4 today WBC 14.2 platelets 321 neutrophils 74.8 BUN 8 creatinine 1.01 Antimicrobials: Zosyn Physical examination: Well-nourished well-developed middle-aged man who is alert in no distress. Head atraumatic normocephalic neck is supple chest rise symmetrical breath sounds clear heart S1-S2 abdomen soft bowel sounds present extremities without cyanosis Assessment: 1. Systemic inflammatory response syndrome with ongoing low-grade fevers and leukocytosis 2. Perianal abscess Plan: Remains stable, continue present care and antibiotics, follow surgical recommendations, consider repeat CT after 7 day course of abx Consultation Date/Type/Reason Admit Date/Time February 12, 2019 at 10:06 Initial Consult Date 02/12/19 Type of Consult id Requesting Provider: MAEGAN ELIAS PA-C Date/Time of Note DATE: 02/14/19 TIME: 15:05 Exam/Review of Systems Exam Vitals Vital Signs Date Temp Pulse Resp B/P (MAP) Pulse Ox O2 O2 Flow FiO2 Time Delivery Rate 02/14/19 100.4 87 17 119/75 98 14:23 (90) 02/14/19 Room Air 02:00 Intake and Output 02/13/19 02/13/19 02/14/19 1515:00 23:00 07:00 IntakeIntake Total 940 ml 1460 ml 1330 ml BalanceBalance 940 ml 1460 ml 1330 ml Results Result Diagram: 02/14/19 0513 02/13/19 0432 Results 24hrs Laboratory Tests Test 02/14/19 05:13 White Blood Count 14.2 H Red Blood Count 5.06 Hemoglobin 14.3 Hematocrit 42.0 Mean Corpuscular Volume 83.0 Mean Corpuscular Hemoglobin 28.3 L Mean Corpuscular Hemoglobin Concent 34.0 Red Cell Distribution Width 12.1 Platelet Count 321 Mean Platelet Volume 9.4 Immature Granulocytes % 0.500 H Neutrophils % 74.8 Lymphocytes % 16.2 Monocytes % 6.9 Eosinophils % 1.3 Basophils % 0.3 Nucleated Red Blood Cells % 0.0 Immature Granulocytes # 0.070 H Neutrophils # 10.6 H Lymphocytes # 2.3 Monocytes # 1.0 H Eosinophils # 0.2 Basophils # 0.0 Nucleated Red Blood Cells # 0.0 HIV (1&2) Antibody NEGATIVE Medications Medication Current Medications Potassium Chloride/Dextrose/ Sod Cl 1,000 ml @ 100 mls/hr Q10H IV Last administered on 02/14/19at 02:23; Admin Dose 100 MLS/HR; Start 02/12/19 at 14:36 IV Flush (NS 3 ml) 3 ml PER PROTOCOL IV ; Start 02/12/19 at 15:00 Ondansetron HCl (Zofran Inj) 4 mg Q6H PRN IV NAUSEA/VOMITING; Start 02/12/19 at 15:00 Acetaminophen (Tylenol Tab) 650 mg Q6H PRN PO .PAIN 1-3 OR TEMP; Start 02/12/19 at 15:00 Acetaminophen/ Hydrocodone Bitart ([place] (5/325)) 1 tab Q6H PRN PO .MOD PAIN 4- 6; Start 02/12/19 at 15:00 Morphine Sulfate (morphine) 2 mg Q4H PRN IV .SEVERE PAIN 7-10 Last administered on 02/13/19at 17:51; Admin Dose 2 MG; Start 02/12/19 at 15:00 Docusate Sodium (Colace) 100 mg Q12H PRN PO .CONSTIPATION; Start 02/12/19 at 15:00 Zolpidem Tartrate (Ambien) 5 mg QHS PRN PO .INSOMNIA; Start 02/12/19 at 15:00 Piperacillin Sod/ Tazobactam Sod 100 ml @ 200 mls/hr Q6 IVPB Last administered on 02/14/19at 12:26; Admin Dose 200 MLS/HR; Start 02/12/19 at 18:00 NOE VINCENT NP February 14, 2019 15:06
--- NOTE | 2019-02-14 17:16 | PN ---
Date/Time of Note Date/Time of Note DATE: 02/14/19 TIME: 17:15 Assessment/Plan VTE Prophylaxis Risk score (from Ns)>0 risk: 2 SCD applied (from [facility] Yes Pharmacological prophylaxis: NA/contraindicated Pharm contraindication: low risk/ambulating Lines/Catheters IV Catheter Type (from [facility]): Peripheral IV Urinary Cath still in place: No Assessment/Plan Hospital Course 1. Sepsis secondary to perianal/perineal abscess IV antibiotics with Zosyn ID consultation appreciated Surgical consultation appreciated, recommendation is for IR drainage, plan is for drainage today HIV is negative Prophylaxis: SCDs DC planning: IR drainage today Result Diagram: 02/14/19 0513 02/13/19 0432 Results 24hrs Laboratory Tests Test 02/14/19 05:13 White Blood Count 14.2 H Red Blood Count 5.06 Hemoglobin 14.3 Hematocrit 42.0 Mean Corpuscular Volume 83.0 Mean Corpuscular Hemoglobin 28.3 L Mean Corpuscular Hemoglobin Concent 34.0 Red Cell Distribution Width 12.1 Platelet Count 321 Mean Platelet Volume 9.4 Immature Granulocytes % 0.500 H Neutrophils % 74.8 Lymphocytes % 16.2 Monocytes % 6.9 Eosinophils % 1.3 Basophils % 0.3 Nucleated Red Blood Cells % 0.0 Immature Granulocytes # 0.070 H Neutrophils # 10.6 H Lymphocytes # 2.3 Monocytes # 1.0 H Eosinophils # 0.2 Basophils # 0.0 Nucleated Red Blood Cells # 0.0 HIV (1&2) Antibody NEGATIVE Subjective 24 Hr Interval Summary Gastrointestinal: other (Rectal pain) Exam/Review of Systems Exam Vitals Vital Signs Date Temp Pulse Resp B/P (MAP) Pulse Ox O2 O2 Flow FiO2 Time Delivery Rate 02/14/19 100.4 87 17 119/75 98 14:23 (90) 02/14/19 Room Air 02:00 Intake and Output 02/13/19 02/13/19 02/14/19 1515:00 23:00 07:00 IntakeIntake Total 940 ml 1460 ml 1330 ml BalanceBalance 940 ml 1460 ml 1330 ml Constitutional: alert, oriented Respiratory: clear to auscultation Cardiovascular: regular rate and rhythm Gastrointestinal: soft; No distended Musculoskeletal: nl extremities to inspection Results Results 24hrs Laboratory Tests Test 02/14/19 05:13 White Blood Count 14.2 H Red Blood Count 5.06 Hemoglobin 14.3 Hematocrit 42.0 Mean Corpuscular Volume 83.0 Mean Corpuscular Hemoglobin 28.3 L Mean Corpuscular Hemoglobin Concent 34.0 Red Cell Distribution Width 12.1 Platelet Count 321 Mean Platelet Volume 9.4 Immature Granulocytes % 0.500 H Neutrophils % 74.8 Lymphocytes % 16.2 Monocytes % 6.9 Eosinophils % 1.3 Basophils % 0.3 Nucleated Red Blood Cells % 0.0 Immature Granulocytes # 0.070 H Neutrophils # 10.6 H Lymphocytes # 2.3 Monocytes # 1.0 H Eosinophils # 0.2 Basophils # 0.0 Nucleated Red Blood Cells # 0.0 HIV (1&2) Antibody NEGATIVE Medications Medication Current Medications IV Flush (NS 3 ml) 3 ml PER PROTOCOL IV ; Start 02/12/19 at 15:00 Ondansetron HCl (Zofran Inj) 4 mg Q6H PRN IV NAUSEA/VOMITING; Start 02/12/19 at 15:00 Acetaminophen (Tylenol Tab) 650 mg Q6H PRN PO .PAIN 1-3 OR TEMP; Start 02/12/19 at 15:00 Acetaminophen/ Hydrocodone Bitart ([place] (5/325)) 1 tab Q6H PRN PO .MOD PAIN 4- 6; Start 02/12/19 at 15:00 Morphine Sulfate (morphine) 2 mg Q4H PRN IV .SEVERE PAIN 7-10 Last administered on 02/13/19at 17:51; Admin Dose 2 MG; Start 02/12/19 at 15:00 Docusate Sodium (Colace) 100 mg Q12H PRN PO .CONSTIPATION; Start 02/12/19 at 15:00 Zolpidem Tartrate (Ambien) 5 mg QHS PRN PO .INSOMNIA; Start 02/12/19 at 15:00 Piperacillin Sod/ Tazobactam Sod 100 ml @ 200 mls/hr Q6 IVPB Last administered on 02/14/19at 12:26; Admin Dose 200 MLS/HR; Start 02/12/19 at 18:00 ELIANE SILVA February 14, 2019 17:16
[2019-02-14 19:41] VITALS: BP 128/60; PULSE 80; RESP 17
[2019-02-15 01:11] VITALS: BP 114/66; PULSE 69; RESP 18
[2019-02-15] MEDS: PIPER-TAZO 3.375 GM IV (PMX) 100 ML IVPB SCH ×3 (05:29→18:00)
[2019-02-15 07:40] VITALS: BP 119/68; PULSE 74; RESP 18
--- NOTE | 2019-02-15 11:47 | CONS ---
Assessment/Plan Assessment/Plan Hospital Course (Demo Recall) No acute changes Tm 100.[address]: Small fluid collection in the perineal region, not accessible for percutaneous aspiration. Antimicrobials: Zosyn Physical examination: Well-nourished well-developed middle-aged man who is alert in no distress. Head atraumatic normocephalic neck is supple chest rise symmetrical breath sounds clear heart S1-S2 abdomen soft bowel sounds present extremities without cyanosis Assessment: 1. Systemic inflammatory response syndrome with ongoing low-grade fevers and leukocytosis 2. Perianal abscess Plan: Remains stable, continue IV antibiotics Consultation Date/Type/Reason Admit Date/Time February 12, 2019 at 10:06 Initial Consult Date 02/12/19 Type of Consult id Requesting Provider: MAEGAN ELIAS PA-C Date/Time of Note DATE: 02/15/19 TIME: 11:45 Exam/Review of Systems Exam Vitals Vital Signs Date Temp Pulse Resp B/P (MAP) Pulse Ox O2 O2 Flow FiO2 Time Delivery Rate 02/15/19 98.4 74 18 119/68 98 07:40 (85) 02/14/19 Room Air 02:00 Intake and Output 02/14/19 02/14/19 02/15/19 1515:00 23:00 07:00 IntakeIntake Total 580 ml 1250 ml 800 ml BalanceBalance 580 ml 1250 ml 800 ml Results Result Diagram: 02/15/19 0446 02/15/19 0446 Results 24hrs Laboratory Tests Test 02/15/19 04:46 White Blood Count 9.4 # Red Blood Count 5.32 Hemoglobin 15.0 Hematocrit 44.3 Mean Corpuscular Volume 83.3 Mean Corpuscular Hemoglobin 28.2 L Mean Corpuscular Hemoglobin Concent 33.9 Red Cell Distribution Width 12.2 Platelet Count 348 Mean Platelet Volume 9.5 Immature Granulocytes % 0.500 H Neutrophils % 59.5 Lymphocytes % 27.1 Monocytes % 7.6 Eosinophils % 4.9 Basophils % 0.4 Nucleated Red Blood Cells % 0.0 Immature Granulocytes # 0.050 H Neutrophils # 5.6 Lymphocytes # 2.5 Monocytes # 0.7 Eosinophils # 0.5 Basophils # 0.0 Nucleated Red Blood Cells # 0.0 Sodium Level 142 Potassium Level 4.3 Chloride Level 105 Carbon Dioxide Level 27 Anion Gap 10 Blood Urea Nitrogen 13 Creatinine 0.97 Est Glomerular Filtrat Rate mL/min > 60 Glucose Level 114 Calcium Level 9.4 Medications Medication Current Medications IV Flush (NS 3 ml) 3 ml PER PROTOCOL IV ; Start 02/12/19 at 15:00 Ondansetron HCl (Zofran Inj) 4 mg Q6H PRN IV NAUSEA/VOMITING; Start 02/12/19 at 15:00 Acetaminophen (Tylenol Tab) 650 mg Q6H PRN PO .PAIN 1-3 OR TEMP; Start 02/12/19 at 15:00 Acetaminophen/ Hydrocodone Bitart ([place] (5/325)) 1 tab Q6H PRN PO .MOD PAIN 4- 6; Start 02/12/19 at 15:00 Morphine Sulfate (morphine) 2 mg Q4H PRN IV .SEVERE PAIN 7-10 Last administered on 02/13/19at 17:51; Admin Dose 2 MG; Start 02/12/19 at 15:00 Docusate Sodium (Colace) 100 mg Q12H PRN PO .CONSTIPATION; Start 02/12/19 at 15:00 Zolpidem Tartrate (Ambien) 5 mg QHS PRN PO .INSOMNIA; Start 02/12/19 at 15:00 Piperacillin Sod/ Tazobactam Sod 100 ml @ 200 mls/hr Q6 IVPB Last administered on 02/15/19at 05:29; Admin Dose 200 MLS/HR; Start 02/12/19 at 18:00 NOE VINCENT NP February 15, 2019 11:47
[2019-02-15 13:18] VITALS: BP 121/75; PULSE 74; RESP 18
--- NOTE | 2019-02-15 14:37 | PN ---
Date/Time of Note Date/Time of Note DATE: 02/15/19 TIME: 14:33 Assessment/Plan Lines/Catheters IV Catheter Type (from Nrs): Saline Lock Alexander in Place (from Nrs): No Assessment/Plan Chief Complaint/Hosp Course 1. Perianal pain: Much improved 2. Fevers 3. Leukocytosis: Resolved 4. 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 BMI 31 -Nutrition and exercise optimization Thank you. Patient seen and examined in collaboration with Dr. Axel Sandoval. Subjective 24 Hr Interval Summary Feels much better. Drain not done by IR- not drainable. No fevers, chills, sob, congested cough, cp, palpitations, yung, dizziness, n/v/d/dysuria. Exam/Review of Systems Vital Signs Vitals Vital Signs Date Temp Pulse Resp B/P (MAP) Pulse Ox O2 O2 Flow FiO2 Time Delivery Rate 02/15/19 98.7 74 18 121/75 98 13:18 (90) 02/14/19 Room Air 02:00 Intake and Output 02/14/19 02/14/19 02/15/19 1515:00 23:00 07:00 IntakeIntake Total 580 ml 1250 ml 800 ml BalanceBalance 580 ml 1250 ml 800 ml Exam Free Text/Dictation Constitutional: alert, oriented, distress (Mild), obese Psych: anxiety; No confusion Head: normocephalic, atraumatic Eyes: nl conjunctiva, EOMI, PERRL; No icteric ENMT: nl external ears & nose, nl lips & teeth, mucosa pink and moist Neck: supple, non-tender; No jvd Respiratory: normal air movement; No congested cough, No labored breathing Cardiovascular: regular rate and rhythm; No edema Gastrointestinal: soft, non-tender, other (Obese. Perianal mild tenderness. No palpable induration or fluctuance. Old scar from where it previously drained on its own); No rebound or guarding, No tender Genitourinary - Male: nl penis, nl scrotum Musculoskeletal: nl extremities to inspection, nl gait and stance; No joint tenderness Extremities: normal pulses; No calf tenderness, No edema Neurological: nl mental status, nl speech, nl strength Skin: nl turgor; No rash or lesions, No diaphoresis Lymph: nl lymph nodes Results Result Diagram: 02/15/19 0446 02/15/19 0446 CECIL CHARLES NP February 15, 2019 14:37
--- NOTE | 2019-02-15 14:52 | PDOCDIS ---
Discharge Instructions CONDITION [id number] Patient Condition: [id number] Good HOME CARE INSTRUCTIONS: [id number] Diet Instructions: [id number] Regular ACTIVITY: [id number] Activity Restrictions: [id number] No Restrictions FOLLOW UP/APPOINTMENTS Follow-up Plan Follow-up with your PCP in 1 to 2 weeks, follow-up with a colorectal surgeon for further evaluation of perianal abscess ELIANE SILVA February 15, 2019 14:52
--- NOTE | 2019-02-15 14:55 | DS ---
Date/Time of Note Date/Time of Note DATE: 02/15/19 TIME: 14:52 Discharge Summary Admission/Discharge Info Admit Date/Time February 12, 2019 at 10:06 Discharge Date/Time February 15, 2019 Discharge Diagnosis 1. Sepsis secondary to perianal/perineal abscess Sepsis and pain have resolved Status post IV antibiotics with Zosyn ID consultation appreciated Surgical consultation appreciated, recommendation was for IR drainage but patient had an insufficient amount of fluid to drain Complete home oral antibiotics HIV is negative Follow-up with colorectal surgeon as an outpatient Patient Condition: Good Hospital Course Patient is a 43-year-old male with history of perianal abscess that improved with antibiotics, patient presents with 3 days of worsening perirectal pain with fevers and chills and generalized malaise. In the ER CT abdomen showed an abscess in the anterior perianal/perineal region measuring approximate 3.4 cm. Patient was seen by general surgery recommendation was for IR drainage. Patient did receive several days of IV antibiotics with Zosyn and was seen by ID. I was unable to drain abscess as there was an insufficient amount of fluid to drain. Patient sepsis and rectal pain did resolve and patient was stable for DC. On da y of discharge patient vitals, labs and physical exam are stable. Home Meds Active Scripts Acetaminophen* (Acetaminophen*) 500 MG Extra Strength Tablet, 500 MG PO Q4H PRN for PAIN AND OR ELEVATED TEMP, #30 TAB Prov:DENIZ RICHARDS DO 02/10/19 Ibuprofen* (Motrin*) 600 Mg Tab, 600 MG PO Q6H PRN for PAIN AND OR ELEVATED TEMP, #30 TAB Prov:DENIZ RICHARDS DO 02/10/19 Amoxicillin/Potassium Clav (Amox-Clav 875-125 mg Tablet) 875-125 mg Tab, 1 TAB PO BID for 10 Days, #20 TAB Prov:DENIZ RICHARDS DO 02/10/19 Follow-up Plan Follow-up with your PCP in 1 to 2 weeks, follow-up with a colorectal surgeon for further evaluation of perianal abscess Primary Care Provider Care Physician No Primary Time spent on discharge: > 30 minutes ELIANE SILVA February 15, 2019 14:55
== END 2019-02-15 19:14 | disposition home or self-care (01) | DRG 872 ==
LOC: FTE 06:55 → 2NE 10:06
PROVIDERS: ADMIT Internal Medicine; ATTEND Internal Medicine
DX: A41.9 Sepsis, unspecified organism (principal); K61.0 Anal abscess; L02.215 Cutaneous abscess of perineum; E66.9 Obesity, unspecified; Z68.31 Body mass index [BMI] 31.0-31.9, adult
CPT/HCPCS: 36415; 72192; 74177; 76870; 80048; 80053; 81003; 83036; 83690; 83735; 84100; 85025; 86703; 96361; 96365; 96375; J0696; J1885; J2185; J2270; J2543; J3480; J7030; Q9967